=== PATIENT | female | born 1940 | race Caucasian/White ===

== ENCOUNTER → 2017-01-11 | Outpatient (CLI) | payer MEDICARE, BC ==
--- NOTE | 2017-01-11 16:06 | PE ---
EXAMINATION TYPE: PET CT fusion skull to thigh DATE OF EXAM: 01/11/2017 COMPARISON: NONE HISTORY: Pancreatic cancer initial staging study after biopsy January 04. TECHNIQUE: Following the intravenous administration of 14.93 mCi of F-18 FDG, whole body images are performed from the skull base to the midthigh. Images are reviewed on the computer in the coronal, a xial, and sagittal planes. Reconstructed rotating images are created on independent workstation and reviewed on the computer. A localization and attenuation correction CT is performed in conjunction with the PET scan. SCAN: Initial Scan FINDINGS: SKULL BASE AND NECK: No suspicious hypermetabolic uptake is seen in the neck. CHEST, MEDIASTINUM, AND HILAR REGION: No suspicious hypermetabolic uptake is seen in the thorax. ABDOMEN AND PELVIS: There are multiple hypermetabolic hyperdense foci scattered throughout the liver measuring predominantly 1 cm or smaller in size strongly suspicious for diffuse metastatic disease gi alin patient history. For reference a 1 cm hypermetabolic right hepatic dome on axial image 106 has ma x SUV of 5.02. There is heterogeneous prominence of the pancreas at level of head without abnormal focal hypermetabo lic uptake or obvious mass clearly seen. There appears to be calculus in the pancreatic head possibl y ductal system near axial images 148 through 150. This can be correlated with MRCP if desired. No izquierdo spicious biliary dilatation is seen. Distal pancreatic body and tail are dystrophic with ductal dilat ation and calcifications up to the proximal to mid body. Cholecystectomy clips are noted. Normal uptake in bladder is seen. There is suspicious hypermetabolic uptake in the colon from mid to distal right colon through the hepatic flexure seen on axial images 140 through 162. There is mild to moderate concentric wall thickening of colon at this level noted. Uptake throughout bowel is otherwi se presumed physiologic. OSSEOUS STRUCTURES: No suspicious hypermetabolic uptake is seen in osseous structures. OTHER CT: Ascending aorta is aneurysmal at 4.1 cm in diameter on axial image 82. 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 There is redundant sigmoid colon. Uterus is surgically absent. There is multilevel facet arthropathy in the lower lumbar spine. There is prominent spinal canal sten osis due to facet arthropathy and disc herniation L2-L3 level seen on axial image 152. There is addit ional prominent multilevel spurring throughout the entire spine. IMPRESSION: 1. No primary pancreatic hypermetabolic mass or neoplasm clearly seen. 2. Multiple hepatic metastatic lesions noted. Suspicious area involving mid to distal right colon up to level of hepatic flexure. Advise colonoscopy correlation if has not been recently performed. 3. Prominent spinal canal stenosis L2-L3 level incidentally noted.
== END | disposition home or self-care (01) ==
LOC: RADPETMAIN 12:36
PROVIDERS: ATTEND Family Medicine
DX: C78.7 Secondary malignant neoplasm of liver and intrahepatic bile duct (principal); C25.7 Malignant neoplasm of other parts of pancreas
CPT/HCPCS: 78815; A9552